=== PATIENT | male | born 1965 | race Caucasian/White ===

== ENCOUNTER 2023-01-13 06:35 | Outpatient (CLI) | payer BC, SELFPAY ==
--- NOTE | ~2023-01-13 | MR_ITS ---
MRI of the lumbar spine Clinical History: Back pain Technique: Axial T2-weighted images, and sagittal T1-weighted, T2-weighted, and T2 fat-sat images wer e acquired. Findings: There is no fracture or subluxation of the lumbar spine. Vertebral bodies maintain normal h eight and alignment. No suspicious bone marrow signal abnormality seen. At L1-L2, there is mild disc bulge with mild facet arthropathy. No central canal stenosis or neural f oraminal narrowing. At L2-L3, there is no disc bulge or herniation. There is mild facet hypertrophy. No spinal canal sten osis or neural foraminal narrowing. At L3-L4, there is mild disc bulge with mild to moderate facet arthropathy. No central canal stenosis . There is mild bilateral neural foraminal narrowing. At L4-L5, there is disc bulge and mild to moderate facet arthropathy. There is mild central canal reinier nosis, and mild bilateral neural foraminal narrowing. At L5-S1, there is minimal disc bulge with mild to moderate facet arthropathy. No central canal steno sis. There is mild right neural foraminal narrowing. Paravertebral soft tissues are unremarkable. Impression: Mild degenerative spondylosis, as above. Reviewed, dictated and finalized at location . [facility] Impression: Mild degenerative spondylosis, as above.
== END 2023-01-13 06:36 | disposition home or self-care (01) ==
PROVIDERS: Visit Provider Chiropractor
DX: M47.896 Other spondylosis, lumbar region (principal)
CPT/HCPCS: 72148